=== PATIENT | female | born 1985 | race African-American/Black ===

== ENCOUNTER 2023-12-15 11:08 | Emergency (ER) | payer MEDICAID ==
[~2023-12-15] VITALS: Ht 167.6 cm; Wt 78.0 kg
[2023-12-15 11:13] VITALS: BP 160/70; PULSE 74; RESP 18; TEMP 98.4; O2SAT 100
[2023-12-15] MEDS ORDERED: ALBU6.7H15 INH (11:21)
[2023-12-15] MEDS ORDERED: P50 PO (11:21)
== END 2023-12-15 12:03 | disposition home or self-care (01) ==
LOC: ER 11:26
DX: Z76.0 Encounter for issue of repeat prescription (principal); F31.9 Bipolar disorder, unspecified; J45.901 Unspecified asthma with (acute) exacerbation; Z86.59 Personal history of other mental and behavioral disorders
CPT/HCPCS: 99283

== ENCOUNTER 2024-02-14 15:32 | Emergency (ER) | payer MEDICAID ==
[~2024-02-14] VITALS: Ht 175.3 cm; Wt 68.0 kg
[~2024-02-14 15:32] MED LIST: ALBU6.7H15 INH; P50 PO
[2024-02-14 15:36] VITALS: O2SAT 98
[2024-02-14 17:52] LABS: BASOPHILS % 0.8 % (0.0-2.0); DIFFERENTIAL COMMENT 1; EOSINOPHILS % 0.1 % (0.0-5.0); HEMATOCRIT. 39.9 % (36.0-48.0); HEMOGLOBIN. 12.8 g/dL (12.0-16.0); LYMPHOCYTES % 8.6 % (20.0-50.0); MEAN CORPUSCULAR HEMOGLOBIN 26.6 pg (28.0-32.0); MEAN CORPUSCULAR HGB CONC 32.2 g/dL (31.0-37.0); MEAN CORPUSCULAR VOLUME 82.7 fL (81.0-99.0); MEAN PLATELET VOLUME 7.8 fl (7.4-10.4); MONOCYTES % 6.5 % (2.0-8.0); PLATELET 246 x1000/uL (130-400); RED BLOOD CELL COUNT 4.82 mill/uL (4.2-5.4); RED CELL DISTRIBUTION WIDTH 23.5 % (11.6-14.6); WHITE BLOOD COUNT 11.4 x1000/uL (4.5-11.0)
[2024-02-14 17:58] LABS: CHLORIDE 107 mEq/L (98-107); POTASSIUM 3.8 mEq/L (3.5-5.1); SODIUM 138 mEq/L (136-145)
[2024-02-14 17:59] LABS: CALCIUM 9.9 mg/dL (8.7-10.4); CARBON DIOXIDE 27 mEq/L (21-32)
[2024-02-14 18:01] LABS: HCG SCREEN NEGATIVE
[2024-02-14 18:04] LABS: CREATININE 0.9 mg/dL (0.6-1.0); GLUCOSE 137 mg/dL (70-105); UREA NITROGEN BLOOD 6 mg/dL (9-23)
[2024-02-14 18:06] LABS: ACETAMINOPHEN < 2 ug/mL (10-30); ALANINE AMINOTRANSFERASE 67 IU/L (10-49); ALBUMIN 4.7 g/dL (3.2-4.8); ASPARTATE AMINOTRANSFERASE 24 IU/L (<34); BILIRUBIN TOTAL 0.6 mg/dL (0.1-1.0)
[2024-02-14] MEDS: LORAZEPAM 2MG/ML INJ IM ONE (18:52)
[2024-02-14] MEDS: HALOPERIDOL LACTATE 5MG/ML VIAL IM ONE (18:52)
[2024-02-14] MEDS: TRAZODONE HCL 50MG TABLET PO SCH (19:06)
[2024-02-14] MEDS: RISPERIDONE 0.5MG TABLET PO SCH (19:06)
[2024-02-14 23:33] LABS: CLARITY URINE CLOUDY (CLEAR); COLOR URINE DARK YELLOW (YELLOW); GLUCOSE URINE NEGATIVE (NEGATIVE); KETONES URINE 1+ (NEGATIVE); LEUKOCYTE ESTERASE URINE 1+ (NEGATIVE); NITRITE URINE NEGATIVE (NEGATIVE); OCCULT BLOOD URINE NEGATIVE (NEGATIVE); PROTEIN URINE 2+ (NEGATIVE); SPECIFIC GRAVITY URINE 1.035 (1.005-1.030)
[2024-02-15 00:21] LABS: *AMPHETAMINES SCREEN URINE PRESUMPTIVE POSITIVE (NEGATIVE); *BARBITURATES SCREEN URINE NEGATIVE (NEGATIVE); *BENZODIAZEPINES SCREEN URINE PRESUMPTIVE POSITIVE (NEGATIVE); *COCAINE SCREEN URINE NEGATIVE (NEGATIVE); METHADONE URINE SCREEN NEGATIVE (NEGATIVE); OPIATES URINE SCREEN NEGATIVE (NEGATIVE); PHENCYCLIDINE URINE SCREEN NEGATIVE (NEGATIVE)
[2024-02-15 00:22] LABS: CANNABINOID URINE SCREEN PRESUMPTIVE POSITIVE (NEGATIVE); ECSTASY MDMA SCREEN URINE CONF.TEST INDICATED (NEGATIVE)
[2024-02-15 01:36] LABS: SQUAMOUS EPITHELIAL CELL URINE 1+ /lpf (RARE/1+)
[2024-02-15 01:37] LABS: RBC URINE 0-2 /hpf (0-2)
[2024-02-15 01:39] LABS: BACTERIA URINE NONE SEEN
[2024-02-15] MEDS: NITROFURANTOIN 100MG M/M CAPSULE PO SCH (09:38)
[2024-02-15] MEDS: LORAZEPAM 1MG TABLET PO ONE ×2 (12:25→16:38)
[2024-02-15] MEDS: RISPERIDONE 1MG TABLET PO SCH ×2 (16:38→22:00)
[2024-02-15] MEDS: TRAZODONE HCL 50MG TABLET PO SCH (22:00)
[2024-02-16 00:41] VITALS: BP 122/78; PULSE 82; RESP 16; TEMP 36.78072; O2SAT 95
== END 2024-02-16 00:53 ==
LOC: ER 15:32
DX: R45.851 Suicidal ideations (principal); F15.10 Other stimulant abuse, uncomplicated; F31.9 Bipolar disorder, unspecified; Z20.822 Contact with and (suspected) exposure to COVID-19
CPT/HCPCS: 80053; 80305; 81003; 80307; 80329; 80320; 84703; 85025; 36415; 96372; 99285; 87426; J1630; J2060; G0480